=== PATIENT | male | born 1940 | race Caucasian/White ===

== ENCOUNTER 2017-10-04 15:04 | Outpatient (CLI) | payer MEDICARE | END 2017-10-04 15:05 | disposition home or self-care (01) | LOC: BICMAMMO 15:04 | PROVIDERS: ATTEND Internal Medicine Gastroenterology | DX: K90.0 Celiac disease (principal) | CPT/HCPCS: 77080 ==

== ENCOUNTER 2018-03-15 14:28 | Outpatient (CLI) | payer MEDICARE | END 2018-03-15 14:29 | disposition home or self-care (01) | LOC: CP 14:28 | PROVIDERS: ATTEND Internal Medicine | DX: R06.09 Other forms of dyspnea (principal); G47.33 Obstructive sleep apnea (adult) (pediatric) | CPT/HCPCS: 94060; 94727; 94729 ==

== ENCOUNTER 2018-03-16 10:05 | Outpatient (CLI) | payer MEDICARE ==
--- NOTE | 2018-03-07 10:54 | RAD ---
TWO VIEWS CHEST: Date: 03-07-18 Provided Clinical History: Dyspnea. Comparison: 02-27-18 FINDINGS: The cardiac and mediastinal silhouette is unchanged in appearance. No focal consolidation, pleural fl uid, or pneumothorax apparent. IMPRESSION: No evidence for an acute cardiopulmonary process. POS: [facility]
--- NOTE | 2018-03-16 12:10 | RAD ---
RADIOGRAPH CHEST 2 VIEWS: HISTORY: A 78-year-old male with dyspnea. FINDINGS: There is no air space density, pulmonary edema, pleural effusion, pneumothorax, or cardiomegaly. IMPRESSION: No acute cardiopulmonary findings. jn [] POS: [facility]
== END 2018-03-16 10:06 | disposition home or self-care (01) ==
LOC: RAD 10:05
PROVIDERS: ATTEND Internal Medicine
DX: R06.00 Dyspnea, unspecified (principal)
CPT/HCPCS: 71046

== ENCOUNTER 2018-03-29 13:26 | Outpatient (CLI) | payer MEDICARE ==
--- NOTE | 2018-03-29 14:00 | RAD ---
TWO VIEWS CHEST: Comparison: 03-16-18 History: Dyspnea. FINDINGS: Two views of the chest shows a normal sized cardiomediastinal silhouette. There is questionable airsp olena opacity projecting over the right inferior thorax. No pleural effusion is seen. IMPRESSION: Possible right lower lobe infiltrate. POS: [facility]
== END 2018-03-29 13:27 | disposition home or self-care (01) ==
LOC: RAD 13:26
PROVIDERS: ATTEND Internal Medicine
DX: R06.00 Dyspnea, unspecified (principal)
CPT/HCPCS: 71046

== ENCOUNTER 2018-04-05 17:00 | Outpatient (CLI) | payer MEDICARE | END 2018-04-05 17:01 | disposition home or self-care (01) | LOC: SLEEPLAB 17:00 | PROVIDERS: ATTEND Internal Medicine | DX: G47.33 Obstructive sleep apnea (adult) (pediatric) (principal); R53.83 Other fatigue; R06.83 Snoring; R35.1 Nocturia; I10 Essential (primary) hypertension; G47.00 Insomnia, unspecified; R09.02 Hypoxemia; Z68.27 Body mass index [BMI] 27.0-27.9, adult | CPT/HCPCS: 95806 ==

== ENCOUNTER 2018-04-19 14:09 | Outpatient (CLI) | payer MEDICARE ==
--- NOTE | 2018-04-19 15:43 | RAD ---
PA AND LATERAL CHEST RADIOGRAPH: Date: 04-19-18 History: Dyspnea. Comparison: 03-29-18 FINDINGS: There has been interval increase in a tiny right pleural effusion with moderate sized right pleural e ffusion on this examination. The parenchymal airspace opacity at the more lateral aspect of the right midlung zone is again seen. While this area could be related to the persistent area of opacity and r elated to persistent infiltrate, this could be related to atelectasis due to enlargement of the right pleural effusion. However, given the areas of opacities in a similar location on prior study, neopla stic process cannot be entirely excluded. Left lung is clear. No other interval change. IMPRESSION: 1. Interval development of moderate sized right pleural effusion. 2. Persistence of a patchy opacity at the lateral aspect of the right midlung zone and right lung bas e in a similar location to the prior exam. This could be related to persistent infiltrate/infectious process, but neoplastic process cannot be excluded. CT thorax is recommended for further evaluation. POS: [facility]
== END 2018-04-19 14:10 | disposition home or self-care (01) ==
LOC: RAD 14:09
PROVIDERS: ATTEND Internal Medicine
DX: R06.00 Dyspnea, unspecified (principal); J90 Pleural effusion, not elsewhere classified; R91.8 Other nonspecific abnormal finding of lung field
CPT/HCPCS: 71046

== ENCOUNTER 2018-04-20 08:43 | Day surgery (SDC) | payer MEDICARE ==
--- NOTE | 2018-04-20 07:50 | HP ---
SERVICE: Pulmonary Medicine. REASON FOR CONSULT: Cough. HISTORY OF PRESENT ILLNESS: The patient was originally sent to me for dyspnea on exertion on March 07, 2018. He was having basically a daily cough. He was also having dyspnea that limits his activity. We did pulmonary function studies, which were abnormal. For the cough, we did a home sleep study, empirically treated him for acid reflux disease and allergic rhinitis. He had several courses of antibiotics, but the cough did not go away. He also had a course of steroids. The coughing improved on the steroids, but subsequently returned. We had multiple chest x-rays on him over the last 2 months. Today, he returned to clinic because of increasing dyspnea on exertion, and cough. We had a repeat chest x-ray to verify previous infiltrate went away, but suddenly, there was a new right-sided pleural effusion there, which we had never identified before. He denies having any fevers or chills. There has been no nausea, vomiting, or diarrhea. Otherwise, the patient is doing fairly well. 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 As such, he would like to get this thing taken care of as soon as possible. PAST MEDICAL HISTORY: 1. Coronary artery disease. 2. Hypertension. 3. Gastroesophageal reflux disease. 4. BPH. 5. Osteoarthritis. PAST SURGICAL HISTORY: 1. Percutaneous coronary intervention x3. 2. Tonsillectomy and adenoidectomy, remote. FAMILY HISTORY: Osteoarthritis. SOCIAL HISTORY: Negative for significant alcohol, tobacco, or illicit drug use. He is a lifelong nonsmoker. He smoked a pipe, and used some cigars intermittently, but never made a habit of it. He denies any exposure to chemicals, dust, asbestos, or tuberculosis. 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 ALLERGIES: NO KNOWN DRUG ALLERGIES. MEDICATIONS: 1. Amlodipine 10 mg p.o. daily. 2. Aspirin 81 mg p.o. daily (currently on hold). 3. Meloxicam 15 mg p.o. daily. 4. Protonix 40 mg p.o. daily. 5. Avodart 0.5 mg p.o. daily. REVIEW OF SYSTEMS: General, head, ears, eyes, nose, throat, cardiovascular, respiratory, GI, , musculoskeletal, neurologic, and skin are negative except as mentioned in the HPI. PHYSICAL EXAMINATION: VITAL SIGNS: Afebrile, pulse 65, respirations 18, and saturation 98% on room air. GENERAL: The patient is awake and alert, in no apparent distress. LUNGS: Excellent air entry is present. There are minimal dependent crackles. There is no prolonged expiratory phase or wheezing appreciated. The right base has slightly decreased air entry. HEART: Normal rate, regular. ABDOMEN: Soft, nontender, and nondistended. Bowel sounds are positive. MUSCULOSKELETAL: No cyanosis or clubbing. There are no pitting in the bilateral lower extremities. NEUROLOGIC: Grossly nonfocal. IMAGING: Chest x-ray today demonstrates volume loss in the right base. In addition to that, there is a moderate-sized pleural effusion there. ASSESSMENT: 1. Obstructive sleep apnea, suspected. 2. Pleural effusion, not otherwise classified. 3. Cough. 4. Dyspnea on exertion. DISCUSSION AND PLAN: I will have the patient undergo a CT of the chest with contrast. In the meantime, we are going to get a CBC, CMP, liver function studies, ALESIA profile, rheumatoid factor, and a BNP. I am setting up for thoracentesis first thing in the morning. He is going to hold off on his Lasix, and his aspirin for the time being, so that we can interpret the data accurately and minimize his complication risk. He will return to clinic in [address] scan and labs that we mention. At that point, we will follow up on the results of his sleep study, and review the thoracentesis laboratories. Obviously, if we come to a conclusion sooner, we will bring him back to clinic sooner. Job ID: [id number]
[2018-04-20] MEDS ORDERED: Lidocaine 1% PF 5 ML VIAL ONE (10:04)
--- NOTE | 2018-04-20 21:25 | OP ---
DATE OF PROCEDURE: 04/20/2018 SERVICE: Pulmonary Medicine. PROCEDURE PERFORMED: Right-sided pleural drainage with catheter insertion under ultrasound guidance. CONSENT: Risks and benefits of this procedure were explained to the patient. All questions were answered and alternative options explained. MEDICATIONS USED: Lidocaine 1% without epinephrine, total quantity 10 mL. PREOPERATIVE DIAGNOSIS: Pleural effusion, not otherwise specified. POSTPROCEDURE DIAGNOSIS: Pleural effusion, not otherwise specified. DESCRIPTION OF PROCEDURE: Time-out was performed by the procedure team with the patient. The patient was positively identified using name and date of . The procedure site was marked. Vital sign monitoring was accomplished by noninvasive hemodynamic monitoring, pulse oximetry, and telemetry. In the seated position, the right posterior hemothorax was examined using ultrasound probe. The diaphragm and pleural fluid were easily identified. The skin was prepped and draped in sterile fashion and anesthetized with 1% lidocaine without epinephrine. A fine needle was inserted in the pleural space with return of serosanguineous fluid. A pleural drainage catheter was inserted in the same location. A total of 1100 mL of pleural fluid was withdrawn by syringe pump technique. A sample was sent for analysis. Evacuation of fluid was terminated because the fluid stopped coming. At the end of the procedure, estimated pleural pressures, measured by manometry, was -20 cm of pleural fluid. The intact catheter was withdrawn on exhalation and a sterile dressing was applied. The patient has stable vitals throughout the entire procedure. ESTIMATED BLOOD LOSS: None. COMPLICATIONS: None. Job ID: [id number]
== END 2018-04-20 10:33 | disposition home or self-care (01) ==
LOC: SDC/OP 08:43
PROVIDERS: ATTEND Internal Medicine
PROC: 0W993ZZ Drainage of Right Pleural Cavity, Percutaneous Approach (ICD-10-PCS; principal; 2018-04-20)
DX: J90 Pleural effusion, not elsewhere classified (principal); I25.10 Atherosclerotic heart disease of native coronary artery without angina pectoris; I10 Essential (primary) hypertension; K21.9 Gastro-esophageal reflux disease without esophagitis; N40.0 Benign prostatic hyperplasia without lower urinary tract symptoms; M19.90 Unspecified osteoarthritis, unspecified site; G47.33 Obstructive sleep apnea (adult) (pediatric); F17.290 Nicotine dependence, other tobacco product, uncomplicated; Z90.89 Acquired absence of other organs; Z79.82 Long term (current) use of aspirin; Z79.1 Long term (current) use of non-steroidal anti-inflammatories (NSAID); Z79.899 Other long term (current) drug therapy; Z98.890 Other specified postprocedural states
CPT/HCPCS: 32554; 36415; 80053; 82248; 83520; 83880; 85025; 85610; 86038; 86200; 86225; J2001

== ENCOUNTER 2018-10-19 15:16 | Outpatient (CLI) | payer MEDICARE | END 2018-10-19 15:17 | disposition home or self-care (01) | LOC: CTENTCT 15:16 | PROVIDERS: ATTEND Physician Assistant | DX: J32.9 Chronic sinusitis, unspecified (principal) | CPT/HCPCS: 70486 ==

== ENCOUNTER 2019-03-12 14:17 | Outpatient (CLI) | payer MEDICARE ==
--- NOTE | 2019-03-12 15:01 | RAD ---
EXAM: Two views chest PROVIDED CLINICAL HISTORY: Dyspnea COMPARISON: 05/11/2018 FINDINGS: Cardiac silhouette and pulmonary vasculature are within normal limits. The larger pleural-based densi ty at the lateral right lung base has resolved. A minimal patchy density is now seen at the lateral aspect of the right lung base which could be related to atelectasis, but area of scarring or less lik jan focal area of pneumonitis. Linear bibasilar densities are seen probably due to atelectasis. No consolidation or pleural fluid is appreciated. Degenerative changes are again noted in the spine. Vas cular calcifications are seen in a tortuous thoracic aorta. IMPRESSION: Resolution of pleural-based density right lung base. There is now a minimal patchy density at the lat eral right lung base which may be related to minimal scarring or atelectasis. Focus of pneumonitis cannot be entirely excluded. Follow-up chest x-ray may be beneficial for further evaluation.
== END 2019-03-12 14:18 | disposition home or self-care (01) ==
LOC: RAD 14:17
PROVIDERS: ATTEND Internal Medicine
DX: R06.00 Dyspnea, unspecified (principal); R91.8 Other nonspecific abnormal finding of lung field
CPT/HCPCS: 71046